=== PATIENT | female | born 1990 | race American Indian/Alaskan Native ===

== ENCOUNTER 2019-05-29 11:44 | Emergency (ER) | payer OTHER ==
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
--- NOTE | 2019-05-29 13:38 | XRay Report ---
Chest with rib series 3 views INDICATION: Left-sided chest pain following injury IMPRESSION: No displaced rib fracture is identified. The lungs are grossly clear. Signer Name: Milan Birmingham MD Signed: 05/29/2019 1:34 PM Workstation Name: [id number]
[2019-05-29] MEDS ORDERED: IBUPROFEN 600 MG TAB PO ONE (19:51)
[2019-05-29] MEDS ORDERED: HYDROcodone/ACETAMINOPHEN 5-325 MG TAB PO ONE (19:51)
[2019-05-29] MEDS ORDERED: ONDANSETRON 4 MG ODT TAB PO ONE (19:51)
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
[2019-05-29 20:49] VITALS: BP 123/81
== END 2019-05-29 20:49 | disposition home or self-care (01) ==
LOC: ED 11:44
DX: S29.011A Strain of muscle and tendon of front wall of thorax, initial encounter (principal); S20.212A Contusion of left front wall of thorax, initial encounter; F12.10 Cannabis abuse, uncomplicated; V89.2XXA Person injured in unspecified motor-vehicle accident, traffic, initial encounter; Y93.89 Activity, other specified; Y92.89 Other specified places as the place of occurrence of the external cause; Y99.8 Other external cause status
CPT/HCPCS: Q0162